=== PATIENT | female | born 1930 | race Caucasian/White ===

== ENCOUNTER 2017-06-11 13:24 | Inpatient (IN) | payer OTHER ==
[~2017-06-11] VITALS: Ht 152.4 cm; Wt 59.9 kg
[~2017-06-11 13:24] MED LIST: ASA81 MG PO; ASPIR 8181 MG; ATORVASTATIN CA40 MG; CATAPRES0.1 MG; HYDRALAZINE HCL50 MG PO; HYZAAR 50-12.1 UDTAB PO; NEURONTIN300 MG PO; NORVASC5 MG; TOPROL XL100 MG; TOPROL XL25 MG PO; VALTREX1000 MG; VYTORIN 10-20 M1 TAB PO; ZYLOPRIM300 MG
[2017-06-16] MEDS ORDERED: HYDRALAZINE HCL50 MG PO (09:57)
[2017-06-16] MEDS ORDERED: FAMOTIDINE20 MG PO (09:57)
[2017-06-16] MEDS ORDERED: AMLODIPINE BESY10 MG PO (09:57)
[2017-06-16] MEDS ORDERED: FUROSEMIDE20 MG PO (09:57)
== END 2017-06-16 12:39 | DRG 378 ==
LOC: ER 13:24 → MEDI 06-12 07:30
PROC: 30233N1 Transfusion of Nonautologous Red Blood Cells into Peripheral Vein, Percutaneous Approach (ICD-10-PCS; principal; 2017-06-12)
DX: K92.2 Gastrointestinal hemorrhage, unspecified (principal); D62 Acute posthemorrhagic anemia; N18.4 Chronic kidney disease, stage 4 (severe); I12.9 Hypertensive chronic kidney disease with stage 1 through stage 4 chronic kidney disease, or unspecified chronic kidney disease; D63.1 Anemia in chronic kidney disease; E87.5 Hyperkalemia; N30.80 Other cystitis without hematuria

== ENCOUNTER 2018-06-17 11:05 | Emergency (ER) | payer OTHER ==
[~2018-06-17] VITALS: Ht 152.4 cm; Wt 57.6 kg
[~2018-06-17 11:05] MED LIST changes: +AMLODIPINE BESY10 MG PO; +FAMOTIDINE20 MG PO; +FUROSEMIDE20 MG PO
== END 2018-06-17 13:56 | disposition home or self-care (01) ==
LOC: ER 11:05
DX: S00.03XA Contusion of scalp, initial encounter (principal); W18.09XA Striking against other object with subsequent fall, initial encounter; Y93.89 Activity, other specified; Y92.89 Other specified places as the place of occurrence of the external cause; Y99.8 Other external cause status

== ENCOUNTER 2018-08-30 09:17 | Outpatient (CLI) | payer OTHER | END 2018-08-30 09:28 | disposition home or self-care (01) | LOC: TOM 09:17 | DX: K57.32 Diverticulitis of large intestine without perforation or abscess without bleeding (principal) ==